=== PATIENT | male | born 1970 | race Caucasian/White ===

== ENCOUNTER 2016-12-08 16:08 | Emergency (ER) | payer BC ==
[2016-12-08 16:25] VITALS: BP 117/75
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
--- OUTSIDE RECORDS SUMMARY | 2016-12-08 17:15 | XMS REPORT | Continuity of Care Document ---
:1970 Demographics Home Phone [phone] Work Phone [phone] Preferred Language Unknown Marital Status Unknown Quaker Affiliation No Preference Race Unknown Ethnic Group Unknown Author Organization [facility] ([facility]) Address [address] [place] [address] Phone [phone] Care Team Providers Name Role Phone Unavailable Primary Care Provider Unavailable Source Comments This disclosure is being made pursuant to the Care Everywhere program, applicable federal and state laws, and may not contain all informaitonavailable regarding this patient.[facility] ([facility]) Active Allergies and Adverse Reactions Not on File Current Medications Not on file Active Problems Not on file Social History Tobacco Use Types Packs/Day Years Used Date Never Assessed Plan of Care Health Maintenance Due Date Last Done Comments Hepatitis B Vaccine (1 of 3 - Primary Series) 1970 Tdap Vaccine 1983 Lipid Disorder Screening 1990 MMR Vaccine 1990 Td Vaccine 1990 Influenza Vaccine: Seasonal (#1) 03/27/2016 Results from Last 3 Months Not on file
[2016-12-08] MEDS ORDERED: KETOROLAC TROMETHAMINE 60 MG/2 ML VIAL IM ONE ×2 (17:35→17:45)
== END 2016-12-08 19:13 | disposition home or self-care (01) ==
LOC: ER 16:08
PROC: 0JQ00ZZ Repair Scalp Subcutaneous Tissue and Fascia, Open Approach (ICD-10-PCS; principal; 2016-12-08)
DX: S01.02XA Laceration with foreign body of scalp, initial encounter (principal); X58.XXXA Exposure to other specified factors, initial encounter; Y93.H3 Activity, building and construction; Y92.89 Other specified places as the place of occurrence of the external cause; Y99.9 Unspecified external cause status